=== PATIENT | female | born 1950 | race Caucasian/White ===

== ENCOUNTER 2023-02-28 08:51 | Emergency (ER) | payer MEDICARE, SELFPAY ==
[2023-02-28 08:55] VITALS: BP 138/77; PULSE 93; RESP 16; TEMP 36.8; O2SAT 96
[2023-02-28 09:17] VITALS: BP 138/77; PULSE 93; RESP 16; TEMP 36.8; O2SAT 96
[2023-02-28 09:22] LABS: Bilirubin Small (Negative); Blood Moderate (Negative); Clarity Cloudy (Clear); Glucose 100 mg/dL (Negative); Ketones Trace mg/dL (Negative); Leukocyte Esterase Large (Negative); Nitrite Positive (Negative)
[2023-02-28 09:26] LABS: Bacteria Moderate HPF (Negative); C & S Indicated? Yes; Casts Negative LPF (Negative); Crystals Negative HPF (Negative); Epithelial Cells Rare HPF (Negative); Mucus Trace (Negative); WBC 20-50 HPF (0-5)
--- NOTE | 2023-02-28 09:37 | W.ED.GENAD ---
Discharge Plan Disposition Patient Disposition: Home Condition: Stable Discharge Details Clinical Impression: Acute UTI Primary Care Provider: Unknown,Unknown ED Provider: Nasim Craig Home Meds and New Rx's Prescriptions: New sulfamethoxazole-trimethoprim 800-160 mg tablet 1 tab PO BID Qty: 11 0RF Continued levothyroxine 88 mcg PO DAILY aspirin 81 mg tablet,delayed release (DR/EC) 81 mg PO DAILY Discharge Instructions Instructions: Sulfamethoxazole/Trimethoprim (By mouth), Urinary Tract Infection in Women (ED) Additional Instructions: Please take antibiotic Bactrim (sulfamethizole/trimethoprim) as prescribed: 1 tablet twice a day by mouth. Be sure to complete full course. Please contact your primary care physician to arrange follow-up. Return to the ER immediately for any worsening or new concerning symptoms. Medical Decision Making 72-year-old female with history of prior urinary tract infections, last UTI about 3 months ago, here with symptoms consistent with UTI. Patient is afebrile and not septic appearing. Urinalysis reviewed and consistent with UTI. Will initiate treatment with Bactrim. Patient notes adverse reaction to Macrobid and Bactrim has worked in the past. Patient does note she has required prolonged course of Bactrim of 7 days. Usual customary discharge instructions reviewed with the patient. Lab Data Lab results reviewed: Yes I reviewed the patient's lab results. Labs: 02/28/23 09:00 Urine - Reflex from Ua Urine Culture - Pending Laboratory Tests Range/Units 02/28/23 09:00 Urine Color (Yellow) [place] Urine Clarity (Clear) Cloudy Urine pH (5-8) 5.0 Ur Specific [place] (1.005-1.025) 1.020 Urine Protein (Negative) mg/dL >=300 H Urine Ketones (Negative) mg/dL Trace H Urine Blood (Negative) Moderate H Urine Nitrite (Negative) Positive H Urine Bilirubin (Negative) Small H Urine Urobilinogen (Up to 0.2) mg/dL 4.0 H Ur Leukocyte Esterase (Negative) Large H Urine RBC (0-2) HPF 10-20 H Urine WBC (0-5) HPF 20-50 H Ur Epithelial Cells (Negative) HPF Rare Urine Crystals (Negative) HPF Negative Urine Bacteria (Negative) HPF Moderate Urine Casts (Negative) LPF Negative Urine Mucus (Negative) Trace Ur Culture Indicated? Yes Urine Glucose (Negative) mg/dL 100 H HPI General Mode of arrival: ambulatory. Date/Time Provider Initiated Documentation: 02/28/23 08:55. Limitations to Documentation: no limitations. Information obtained by: patient. HPI Narrative: 72-year-old female presents with chief complaint of urinary tract infection. Patient notes she had urinary tract infections in the past. Last UTI was about 3 months ago. Patient states she has increased urinary frequency, dysuria, burning discomfort with urination, pressure in her bladder. Patient notes she took Pyridium yesterday. Patient is here from [place] of state visiting sister. She is no associated nausea or vomiting. No flank pain. No fever. Related Data Home Medications Medication Instructions Recorded Confirmed aspirin 81 mg tablet,delayed 81 mg PO DAILY 02/28/23 02/28/23 release levothyroxine 88 mcg PO DAILY 02/28/23 02/28/23 sulfamethoxazole 800 1 tab PO BID uti #11 tabs 02/28/23 mg-trimethoprim 160 mg tablet Previous Rx's Medication Instructions Recorded sulfamethoxazole 800 1 tab PO BID uti #11 tabs 02/28/23 mg-trimethoprim 160 mg tablet Allergies Allergy/AdvReac Type Severity Reaction Status Date / Time statin Allergy Uncoded 02/28/23 09:00 General Stated Complaint: Urinary JENN: 4 Review of Systems All systems reviewed & are unremarkable except as noted in HPI and below Constitutional Constitutional: Denies fever(s) Respiratory Respiratory: Reports cough (Recently) Genitourinary Genitourinary: Reports as per HPI PFSH All Active Problems Acute UTI (Acute) Social History Smoking/Tobacco Use Status: Never Smoking risk assessment performed?: Yes Housing: house Do you feel safe at home: Yes Do you feel safe in your relationship?: Yes Exam Const General: cooperative and no acute distress HENMT Mouth: moist mucous membranes Eyes Conjunctivae: normal conjunctivae Sclera: normal sclerae Neck Neck: trachea midline and supple Resp Auscultation: clear to auscultation bilaterally, no rales, no rhonchi and no wheezes Cardio Rate: regular rate and not tachycardic Rhythm: regular rhythm GI Palpation: soft, not firm, no guarding, no masses, not rigid and tender suprapubicly Back/Spine/Pelvis Back: no CVA tenderness and other (Does note some discomfort lower back) Skin General skin exam: no rashes or lesions noted Neuro General: patient alert, patient awake and tone normal Course Vital Signs Vital signs: Vital Signs Temperature 36.8 C 02/28/23 08:55 Pulse 93 H 02/28/23 08:55 Respiratory Rate 16 02/28/23 08:55 Blood Pressure 138/77 02/28/23 08:55 Pulse Oximetry 96 02/28/23 08:55 Temperature 36.8 C 02/28/23 09:17 Temperature Source Oral 02/28/23 09:17 Pulse 93 H 02/28/23 09:17 Respiratory Rate 16 02/28/23 09:17 Respiratory Effort Normal 02/28/23 09:17 Blood Pressure 138/77 02/28/23 09:17 Blood Pressure Position Sitting 02/28/23 08:55 Pulse Oximetry 96 02/28/23 09:17 Oxygen Delivery Method Room Air 02/28/23 09:17 Oxygen Flow Rate 0 02/28/23 08:55 Lab/Test Results Lab/Test Results: 02/28/23 09:00 Urine - Reflex from Ua Urine Culture - Pending Laboratory Tests Range/Units 02/28/23 09:00 Urine Color (Yellow) [place] Urine Clarity (Clear) Cloudy Urine pH (5-8) 5.0 Ur Specific [place] (1.005-1.025) 1.020 Urine Protein (Negative) mg/dL >=300 H Urine Ketones (Negative) mg/dL Trace H Urine Blood (Negative) Moderate H Urine Nitrite (Negative) Positive H Urine Bilirubin (Negative) Small H Urine Urobilinogen (Up to 0.2) mg/dL 4.0 H Ur Leukocyte Esterase (Negative) Large H Urine RBC (0-2) HPF 10-20 H Urine WBC (0-5) HPF 20-50 H Ur Epithelial Cells (Negative) HPF Rare Urine Crystals (Negative) HPF Negative Urine Bacteria (Negative) HPF Moderate Urine Casts (Negative) LPF Negative Urine Mucus (Negative) Trace Ur Culture Indicated? Yes Urine Glucose (Negative) mg/dL 100 H
[2023-02-28] MEDS: Sulfameth/Trimeth DS, 2 TABS/BTL 1 TAB PO (09:46)
[2023-02-28] MEDS: Sulfameth/Trimeth DS TAB 1 TAB PO (09:46)
--- NOTE | 2023-03-02 10:02 | NUR.NOTE ---
Accessed pt chart to determine the antibiotic that was prescribed to pt on discharge for culture. Nursing Note:
--- NOTE | 2023-03-03 07:41 | ED.FU.B_ITS ---
Date of service: 03/03/23 Time of Service: 07:41 Follow Up Plan: Patient had a final urine culture result showing greater than 100,000 colony- forming units per mL mixed gram positive rashid. She also had less than 10,000 colony per mL of gram-negative rashid. She was discharged on trimethoprim/sulfamethoxazole. No change in treatment plan.
== END 2023-02-28 09:49 | disposition home or self-care (01) ==
PROVIDERS: Emergency Provider Student in an Organized Health Care Education/Training Program
DX: N39.0 Urinary tract infection, site not specified (principal); R30.0 Dysuria; Z87.440 Personal history of urinary (tract) infections
CPT/HCPCS: 99283; 81003; 81015; 87086

== ENCOUNTER 2023-03-27 10:22 | Emergency (ER) | payer MEDICARE, SELFPAY ==
[2023-03-27 10:28] VITALS: BP 141/83; PULSE 97; RESP 18; TEMP 36.4; O2SAT 98
--- NOTE | 2023-03-27 10:45 | DI.CT_ITS ---
Exam(s) CT ABDOMEN PELVIS W EXAM: CT ABDOMEN PELVIS W CLINICAL HISTORY: flank pain. TECHNIQUE: Imaging Protocol: Axial computed tomography images with coronal and sagittal reformatted images were created and reviewed CONTRAST MATERIAL: Intravenous: Omnipaque-350 100cc Oral: None COMPARISON: No exams were available for comparison FINDINGS: VISUALIZED LUNG BASES: No nodules nor pleural effusions evident. ABDOMEN: There is no ascites. LIVER: There are no focal hepatic lesions evident. No dilated intrahepatic ducts. GALLBLADDER/BILIARY: Gallbladder surgically absent. CBD diameter is mildly prominent probably relate d to post cholecystectomy status. PANCREAS: No evidence of pancreatic mass nor dilatation of the pancreatic duct. SPLEEN: Spleen size upper normal. Spleen contains hilar calcifications splenic and portal veins are patent. ADRENALS: There are no significant adrenal masses. KIDNEYS:No cysts evident. No solid renal masses. No calculi nor hydronephrosis.. There is some cor tical thinning of the kidneys bilaterally, slightly more so on the left side. No hydronephrosis nor hydroureter. The urinary bladder exhibits diffuse abnormal thickening of the bladder wall. There is also a single air-gas bubble in the anterior aspect of the bladder, possibly related to infection versus recent in strumentation. ABDOMINAL AORTA: Abdominal aorta is not enlarged. LYMPH NODES:There is no retroperitoneal nor paraaortic adenopathy. ABDOMINAL WALL: No evidence of significant anterior abdominal wall nor inguinal hernia. GI: There is evidence of previous right-sided bowel surgery-partial right colectomy. There is no bow el obstruction, free air, nor abscess. PELVIS: GI: Appendix is surgically absent.There is extensive sigmoid diverticulosis. No obvious acute divert iculitis. LYMPH NODES: There is no intrapelvic nor inguinal adenopathy. REPRODUCTIVE: Uterus is surgically absent. No abnormal adnexal masses nor free fluid in the pelvis. URINARY BLADDER: Abnormal as above. OSSEOUS: No fractures and no significant osseous lesions. IMPRESSION: 1. Previous cholecystectomy and hysterectomy. Also prior partial right hemicolectomy with no evidenc e of bowel obstruction, free air, nor abscess. No ascites evident. 2. There is diffuse abnormal thickening of the urinary bladder wall most probably related to chronic cystitis. There is also single gas bubble within the bladder lumen which is either related to infect ion or recent instrumentation. 3. There is extensive sigmoid diverticulosis. No obvious diverticulitis although please note that a subtle case of diverticulitis can be missed here, given the extensive involvement of the sigmoid here . Called by myself to ER provider. RADIATION DOSE DELIVERED: Total DLP DATA REPOSITORY: All CT scans at this facility are submitted to the National Radiology Data Registry (NRDR) Dose Index Registry (DIR) with the [employer] (A[employer]). RADIATION OPTIMIZATION: All CT scans at this facility use at least one of these dose optimization te chniques: automated exposure control; mA and/or kV adjustment per patient size (includes targeted exa ms where dose is matched to clinical indication); or iterative reconstruction.
--- NOTE | 2023-03-27 10:45 | RT.EKG_ITS ---
APPROVED REPORT Exam: Resting ECG Reason for Exam: weakness, nausea Patient Location: E HR:74 bpm ECG Measurements Heart Rate 74 AXIS MA 181 P 70 QRSd 81 QRS -10 QT 365 T 49 QTc 406 Conclusion Sinus rhythm...normal P axis, V-rate 60- 99 NSR, LAD, NL intervals, borderline L atrial enlargement, no STEMI, no previous available for comparis on
[2023-03-27 10:49] VITALS: BP 142/88; PULSE 90; RESP 18; TEMP 36.6; O2SAT 98
[2023-03-27 11:01] LABS: Bilirubin Negative (Negative); Blood Moderate (Negative); Clarity Cloudy (Clear); Glucose Negative (Negative); Ketones Negative (Negative); Leukocyte Esterase Small (Negative); Nitrite Negative (Negative); Specific Gravity 1.015 (1.005-1.025); Urobilinogen 0.2 mg/dL (Up to 0.2); pH 5.5 (5-8)
[2023-03-27 11:08] LABS: Abs Immature Grans 0.01 10^3/uL (0.0-0.06); Absolute Basophil Count 0.03 10^3/uL (0.0-0.2); Absolute Eosinophil Count 0.06 10^3/uL (0.0-0.7); Absolute Monocyte Count 0.24 10^3/uL (0.1-0.8); Absolute Neutrophil Count 3.37 10^3/uL (1.2-6.7); Basophils % 0.6; Eosinophils % 1.2; HCT 35.2 % (36.0-46.0); HGB 11.9 g/dL (11.2-15.7); Immature Grans % 0.2; Lymphocytes % 25.9; MCH 33.6 pg (27.0-33.0); MCHC 33.8 % (32.0-36.0); MCV 99 fL (80-95); MPV 8.4 fL (8.0-11.0); Monocytes % 4.8; Neutrophils % 67.3; Platelet Count 193 10^3/uL (130-400); RBC 3.54 10^6/uL (3.93-5.22); RDW 11.5 % (11.7-14.6); RDW-SD 42.4 fL; WBC 5.01 10^3/uL (4.4-10.8)
[2023-03-27] MEDS: ACETAMINOPHEN 1,000 MG/100 ML BTL 400 MG IVPB (11:12)
[2023-03-27] MEDS: Ondansetron 4 MG/2 ML VIAL IVP (11:12)
[2023-03-27 11:18] LABS: Bacteria Moderate HPF (Negative); C & S Indicated? Yes; Casts Negative LPF (Negative); Crystals Negative HPF (Negative); Epithelial Cells Few HPF (Negative); Mucus Trace (Negative)
[2023-03-27 11:28] LABS: Magnesium 1.6 mg/dL (1.8-2.4)
[2023-03-27 11:34] LABS: ALT 19 U/L (14-59); AST 12 U/L (15-37); Albumin 3.9 g/dL (3.4-5.0); Alkaline Phosphatase 99 U/L (46-116); Anion Gap 9.5 mmol/L (3-11); BUN 20 mg/dL (7-18); Bilirubin, Total 0.8 mg/dL (0.2-1.0); CO2 27.5 mmol/L (21.0-32.0); CREATININE 1.1 mg/dL (0.55-1.02); Chloride 105 mmol/L (98-107); Estimated GFR 53.06 (mL/min/1.73m2); Glucose 119 mg/dL (74-106); Lipase 34 U/L (16-77); Potassium 3.7 mmol/L (3.5-5.1); Sodium 142 mmol/L (136-145); Total Protein 7.2 g/dL (6.4-8.2)
--- NOTE | 2023-03-27 11:34 | ED.GENADUL_ITS ---
Discharge Plan Disposition Patient Disposition: Home Condition: Stable Discharge Details Clinical Impression: Acute UTI Primary Care Provider: Unknown,Unknown ED Provider: Laure Romero Home Meds and New Rx's Prescriptions: New cephalexin 500 mg capsule 500 mg PO BID 7 Days Qty: 14 0RF ondansetron HCl 4 mg tablet 4 mg PO Q8H PRN PRN3 Days Qty: 10 0RF magnesium 250 mg tablet 250 mg PO DAILY Qty: 20 0RF phenazopyridine [Pyridium] 100 mg tablet 100 mg PO TID PRNQty: 6 0RF Continued levothyroxine 88 mcg PO DAILY aspirin 81 mg tablet,delayed release (DR/EC) 81 mg PO DAILY Discontinued sulfamethoxazole-trimethoprim 800-160 mg tablet 1 tab PO BID Qty: 11 0RF Discharge Instructions Instructions: Urinary Tract Infection in Women (ED), Hypomagnesemia (ED) Additional Instructions: Take antibiotics as prescribed Take Pyridium no more than 3 times a day or every 8 hours as needed for burning with urination, this will make your urine turn orange Yogurt daily while on antibiotics Take Zofran as needed for nausea and vomiting take tylenol 650 mg every 4-6 hours as needed for pain Increase fluid hydration, at least eight 8 ounce glasses of water daily Discharge Data Discharge Date/Time-TO BE ENTERED AT DEPARTURE: 03/27/23 16:36 Medical Decision Making This 72-year-old female presents with report of back pain and painful urination also reports some nausea without vomiting. Denies fever. Patient is alert and oriented, she is tearful and reports chills, but does not report fever at home History of urinary tract infection with similar symptoms today. Has intermittent back pain in the past. Alert and oriented x 4, ambulatory steady gait, mild suprapubic tenderness, mild flank tenderness, no abdominal bruit or pulsatile mass, lungs clear to auscultation, no peripheral edema CT does not show evidence of significant acute abnormality, likely cystitis based on urinalysis and patient is quite symptomatic, she is afebrile and nontoxic I think she is going to be stable for discharge home She is able to tolerate p.o. Vitals have been stable Will take magnesium as prescribed Patient also has not establish care with a primary care physician since moving to [place], she is encouraged to establish care, she is in place and care management list for follow-up Pending urine culture at this time Diverticulosis noted on CT without evidence of acute diverticulitis, will treat with Keflex Return precautions reviewed and patient expressed understanding HPI General Date/Time Provider Initiated Documentation: 03/27/23 10:29 . HPI Narrative: This 72-year-old female presents with low back pain and painful urination for the past 3 days. Patient states that denies chest pain or shortness. She feels nauseous and lightheaded. She states her symptoms are consistent with prior history of urinary tract infection. She does have some back and abdominal pain. She denies any falls or injuries. She does have a history of colon cancer is in remission has been in [place] for the past 3 months, moved from [place]. Denies history of kidney stones. Denies any current chemotherapy. Denies known fever at home. Denies any nausea vomiting or diarrhea. Related Data Home Medications Medication Instructions Recorded Confirmed aspirin 81 mg tablet,delayed 81 mg PO DAILY 02/28/23 02/28/23 release levothyroxine 88 mcg PO DAILY 02/28/23 02/28/23 cephalexin 500 mg capsule 500 mg PO BID 7 days #14 caps 03/27/23 magnesium 250 mg tablet 250 mg PO DAILY #20 tabs 03/27/23 ondansetron HCl 4 mg tablet 4 mg PO Q8H PRN PRN 3 days #10 tabs 03/27/23 phenazopyridine 100 mg tablet 100 mg PO TID PRN 6 doses #6 tabs 03/27/23 (Pyridium) Previous Rx's Medication Instructions Recorded cephalexin 500 mg capsule 500 mg PO BID 7 days #14 caps 03/27/23 magnesium 250 mg tablet 250 mg PO DAILY #20 tabs 03/27/23 ondansetron HCl 4 mg tablet 4 mg PO Q8H PRN PRN 3 days #10 tabs 03/27/23 phenazopyridine 100 mg tablet 100 mg PO TID PRN 6 doses #6 tabs 03/27/23 (Pyridium) Allergies Allergy/AdvReac Type Severity Reaction Status Date / Time statin Allergy Uncoded 02/28/23 09:00 General Stated Complaint: Urinary JENN: 4 PFSH All Active Problems (Updated 03/27/23 @ 15:39 by GAURAV Marks) Acute UTI (Acute) Social History Smoking/Tobacco Use Status: Never Smoking risk assessment performed?: Yes Housing: house Do you feel safe at home: Yes Do you feel safe in your relationship?: Yes Course Vital Signs Vital signs: Vital Signs Temperature 36.4 C 03/27/23 10:28 Pulse 97 H 03/27/23 10:28 Respiratory Rate 18 03/27/23 10:28 Blood Pressure 141/83 H 03/27/23 10:28 Pulse Oximetry 98 03/27/23 10:28 Temperature 36.6 C 03/27/23 10:49 Temperature Source Tympanic 03/27/23 10:28 Pulse 90 03/27/23 10:49 Respiratory Rate 18 03/27/23 10:49 Blood Pressure 142/88 H 03/27/23 10:49 Pulse Oximetry 98 03/27/23 10:49 Oxygen Delivery Method Room Air 03/27/23 10:28 Oxygen Flow Rate 0 03/27/23 10:28 Lab/Test Results Lab/Test Results: 03/27/23 10:40 Urine - Reflex from Ua Urine Culture - Pending Laboratory Tests Range/Units 03/27/23 03/27/23 10:40 11:00 WBC (4.4-10.8) 10^3/uL 5.01 RBC (3.93-5.22) 10^6/uL 3.54 L Hgb (11.2-15.7) g/dL 11.9 Hct (36.0-46.0) % 35.2 L MCV (80-95) fL 99 H MCH (27.0-33.0) pg 33.6 H MCHC (32.0-36.0) % 33.8 RDW (11.7-14.6) % 11.5 L Plt Count (130-400) 10^3/uL 193 MPV (8.0-11.0) fL 8.4 Immature Gran % 0.2 Neutrophils % 67.3 Lymphocytes % 25.9 Monocytes % 4.8 Eosinophils % 1.2 Basophils % 0.6 Nucleated RBC % (0.0-0.3) % 0.0 Absolute Neutrophils (1.2-6.7) 10^3/uL 3.37 Absolute Lymphocytes (1.2-3.4) 10^3/uL 1.30 Absolute Monocytes (0.1-0.8) 10^3/uL 0.24 Absolute Eosinophils (0.0-0.7) 10^3/uL 0.06 Absolute Basophils (0.0-0.2) 10^3/uL 0.03 Magnesium (1.8-2.4) mg/dL 1.6 L Urine Color (Yellow) Yellow Urine Clarity (Clear) Cloudy Urine pH (5-8) 5.5 Ur Specific [place] (1.005-1.025) 1.015 Urine Protein (Negative) mg/dL 30 H Urine Ketones (Negative) mg/dL Negative Urine Blood (Negative) Moderate H Urine Nitrite (Negative) Negative Urine Bilirubin (Negative) Negative Urine Urobilinogen (Up to 0.2) mg/dL 0.2 Ur Leukocyte Esterase (Negative) Small H Urine RBC (0-2) HPF 5-10 H Urine WBC (0-5) HPF 10-20 H Ur Epithelial Cells (Negative) HPF Few Urine Crystals (Negative) HPF Negative Urine Bacteria (Negative) HPF Moderate Urine Casts (Negative) LPF Negative Urine Mucus (Negative) Trace Ur Culture Indicated? Yes Urine Glucose (Negative) mg/dL Negative
[2023-03-27 11:36] VITALS: BP 120/70; PULSE 74; RESP 18; TEMP 36.9; O2SAT 96
[2023-03-27 13:26] VITALS: BP 126/76; PULSE 74; RESP 18; TEMP 37.1; O2SAT 96
[2023-03-27] MEDS: Omnipaque 350 MG/ML 100 ML BTL IJ (14:01)
[2023-03-27 15:15] VITALS: BP 120/48; PULSE 81; RESP 18; TEMP 37.1; O2SAT 98
--- NOTE | 2023-03-27 15:43 | NUR.NOTE ---
Referral given to Care Managers to help Pt obtain a primary care physican as soon as possible
[2023-03-27] MEDS: Phenazopyridine 100 MG TAB PO (16:17)
[2023-03-27] MEDS: Acetaminophen 325 MG TAB 650 MG PO (16:17)
[2023-03-27] MEDS: ceFAZolin 1 GM/50 ML BAG IVPB (16:18)
[2023-03-27 16:35] VITALS: BP 158/97; PULSE 82; RESP 18; TEMP 36.8; O2SAT 98
--- NOTE | 2023-03-30 07:11 | NUR.NOTE ---
Accessed chart to determine orders for EKG and to determine whether or not one needs to be cancelled. Nursing Note:
== END 2023-03-27 16:36 | disposition home or self-care (01) ==
PROVIDERS: Emergency Provider Physician Assistant
DX: N39.0 Urinary tract infection, site not specified (principal); Z85.038 Personal history of other malignant neoplasm of large intestine; Z90.49 Acquired absence of other specified parts of digestive tract; Z90.710 Acquired absence of both cervix and uterus
CPT/HCPCS: 80053; 83690; 93005; 96365; 96366; 96375; 99285; 74177; 81003; 81015; 83735; 85025; 87086; 93010; 99284; J0131; J0690; J2405; J3490